=== PATIENT | male | born 1970 | race Caucasian/White ===

== ENCOUNTER 2024-01-30 11:17 | Emergency (ER) | payer MEDICARE, MEDICAID, SELFPAY ==
[2024-01-30 11:28] VITALS: BP 131/84; PULSE 85; RESP 18; TEMP 36.7; O2SAT 96
--- NOTE | 2024-01-30 11:29 | EKG_ITS ---
[facility] Test Date: 2024-01-30 Pat Name: TACHO PEARSON Department: Room: - Gender: Male Data Processing Clerk: : 1970 Requested By: Jd Thompson Order Number: [id number] Reading MD: Jd Thompson Measurements Intervals Glennie Rate: 78 P: 45 MI: 154 QRS: 10 QRSD: 109 T: 2 QT: 382 QTc: 437 Interpretive Statements SINUS RHYTHM INCOMPLETE RIGHT BUNDLE BRANCH BLOCK [90+ ms QRS DURATION, TERMINAL R IN V1/V2, 40+ ms S IN I/aVL/V4/V5/V6] Compared to ECG 03/20/2023 02:29:39 Incomplete right bundle-branch block now present Sinus tachycardia no longer present /store/S0/[id number]/ecg/[id number]
--- NOTE | 2024-01-30 11:29 | XR_ITS ---
Examination: AP chest single view TECHNIQUE: AP portable upright chest single view Exam date and time: February 09, 2024 1159 hours Comparison March 24, 2023 INDICATIONS: Chest pain today. FINDINGS: Normal heart size No pneumonia or pulmonary edema IMPRESSION: No pneumonia or pulmonary edema Moderate osteopenia
--- NOTE | 2024-01-30 11:30 | EDNOTE_ITS ---
ED General RME/HPI General Chief complaint: Chest Pain Stated complaint: CHEST PAIN Time Seen by Provider: 01/30/24 11:29 Arrival date/time: 01/30/24 11:17 CC: Chest pain HPI of substernal chest pain onset abruptly after drinking coffee this morning 7 on a 10 scale EMS reports stable vital signs around he was given Nitropaste, and 1 baby aspirin his chest pain is decreased to a 1. The patient has no prior history of similar events past medical history includes hypertension smoking and alcohol patient states he is stopped smoking and drinking years ago. Patient is awake alert and oriented not in any acute distress. Related Data Previous Rx's ?Medication ?Instructions ?Recorded phenobarbital 32.4 mg tablet 32.4 mg PO QDAY #7 tabs 03/31/23 Allergies Allergy/AdvReac Type Severity Reaction Status Date / Time No Known Allergies Allergy Verified 12/09/22 10:18 Review of Systems Review of Systems Narrative Review of Systems: GEN: No fever, no chills, no weight loss EYES: No discharge, no visual changes, no pain HEENT: No ear pain, no congestion, no sore throat PULM: No shortness of breath, no cough, no congestion CV: + chest pain, no dyspnea on exertion, no palpitations GI: No nausea, no vomiting, no diarrhea, no pain, no constipation : No frequency, no urgency, no dysuria MUSC/SKEL: No joint pain, no back pain SKIN: No rash PSYCH: No hallucinations, no depression HEME/LYMPH: No easy bleeding or bruising tendencies NEURO: No weakness, no headache Past Medical History Past Medical History NEUROLOGIC: Positive Seizures CARDIAC: Positive Cardiac Disorders, Hypercholesterolemia and Hypertension; Negative Congestive Heart Failure RESPIRATORY: Negative Chronic Obstructive Pulmonary Disease (COPD) or Asthma GENITOURINARY: Negative Renal Disease ENDOCRINE: Negative Diabetes Mellitus Type 1 or Diabetes Mellitus Type 2 HEMATOLOGIC: Negative Sickle Cell Disease Family History FAMILY HISTORY: Positive Family Cardiac Disorders Social History SMOKING STATUS: Former smoker SUBSTANCE USE: marijuana ED Exam Narrative Physical exam: [General: Not in any acute distress Head normocephalic HEENT: Within acceptable limits Neck is supple nontender Chest equal chest rise nontender to palpation Respiratory: Clear to auscultation no wheezes crackles or rubs CV: Rate rhythm is regular no murmurs rubs or clicks Abdomen is distended secondary to body habitus soft nontender no masses positive bowel sounds all 4 quadrants Back: No CVA tenderness no spinous process tenderness from cervical spine thoracic and lumbar spine Skin: Intact no petechiae rash induration ulceration or crepitus Extremities: Moving all extremity against resistance cap refill less than 2 seconds neurosensory intact. Pitting edema to both lower extremities. Neuro: Awake alert oriented x3 Glascow coma 15 no focal deficits] Course Course Course Narrative: Heart score 3 Quality Measures none Orders Category Date Time Status Change Number Operator Q4H START 00 Care 01/30/24 11:50 Active EKG (ED ONLY) *Do not use* NOW Care 01/30/24 11:29 Completed EKG (ED Only) Stat Exams 01/30/24 11:29 Draft XR chest 1V Stat Exams 01/30/24 11:29 Completed B-Type Natriuretic Peptide Stat Lab 01/30/24 12:33 Completed CBC Stat Lab 01/30/24 12:00 Completed Comprehensive Metabolic Panel Stat Lab 01/30/24 12:33 Completed Drug Screen,Urine Stat Lab 01/30/24 12:24 Completed LDH (Lactate Dehydrogenase) Stat Lab 01/30/24 12:33 Completed Magnesium Stat Lab 01/30/24 12:33 Completed Partial Thromboplastin Time Stat Lab 01/30/24 12:00 Completed Prothrombin Time with INR Stat Lab 01/30/24 12:00 Completed Troponin I Stat Lab 01/30/24 12:33 Completed Troponin I Stat Lab 01/30/24 14:44 Completed Urinalysis Stat Lab 01/30/24 12:24 Completed Vital Signs Vital signs: Vital Signs Temperature 98.1 F 01/30/24 11:28 Pulse Rate 85 01/30/24 11:28 Respiratory Rate 18 01/30/24 11:28 Blood Pressure 131/84 H 01/30/24 11:28 Pulse Oximetry (%) 96 01/30/24 11:28 Oxygen Delivery Method Room Air 01/30/24 11:28 [facility] Patient data External records reviewed:: [facility] previous records and EMS form Clinical information provided by:: patient and EMS Social determinants that could affect healthcare access:: none Patient has the following chronic illnesses:: Subdural hematoma alcohol abuse How is presenting disease/condition affected by chronic disease/condition?: u neffected by Evaluation data The following diagnostics were reviewed and interpreted by me:: lab results, radiology exam(s) and EKG tracing(s) Lab and/or radiology exams considered but not ordered:: Number EKG performed at 1153 shows a ventricular at 70 KS interval 154 QRS of 109 QTc of 415 is normal sinus rhythm. CBC shows no acute leukocytosis anemia thrombocytopenia CMP shows no acute electrolyte imbalances renal impairment transaminitis or T. bili elevation Initial and delta troponin are negative. BNP is negative Chest x-ray is negative for any acute finding requires emergent or immediate intervention. Interpretation Summary: Chest pain is probable noncardiac. Patient be discharged home for follow-up with outpatient basis. Medications Medications considered but not ordered:: None Medication administrations:: None Consultations Consultation(s) initiated? (list below): No Diagnosis Differential Diagnosis ED Complaint MDM: ACS DC pneumonia Most likely diagnosis given after review of the tests above:: Chest pain Admission Indicated Admission indicated?: not indicated Explain why admission is indicated or not indicated:: Stable for outpatient follow-up Admission Request Was there a request for admission?: No Disposition Plan Disposition Plan: Discharge Discharge Attestation Discharge Attestation: The patient and all family members were given an opportunity to ask questions and understood the discharge instructions. Discharge instructions specifically effects, indications for sooner follow up or return to the emergency department, and the expected course of current diagnosis. Patient condition: Stable Medical Decision Making Differential Diagnosis Differential Diagnosis: ACS DC pneumonia Lab Data 01/30/24 12:00 01/30/24 12:33 Labs: Lab Results 01/30/24 01/30/24 01/30/24 Range/Units 12:00 12:24 12:33 WBC 5.0 (3.8-10.6) Thou/mm3 RBC 5.00 (4.50-5.90) Miln/mm3 Hgb 13.6 (13.5-16.0) g/dL Hct 40.7 L (41.0-53.0) % MCV 81 (80-100) fL MCH 27.2 (25.0-35.0) pg MCHC 33.4 (31.0-37.0) g/dl RDW Std Deviation 40.6 (35.1-43.9) fL Plt Count 254 (140-440) Thou/mm3 Neut % (Auto) 59 (37-80) % Lymph % (Auto) 26 (10-50) % Love % (Auto) 11 (0-12) % Eos % (Auto) 2 (0-10) % Baso % (Auto) 1 (0-2.5) % Neut # (Auto) 3.0 (1.8-7.7) Thou/mm3 Lymph # (Auto) 1.3 (1.0-4.8) Thou/mm3 Love # (Auto) 0.6 (0.0-0.8) Thou/mm3 Eos # (Auto) 0.1 (0.0-0.5) Thou/mm3 Baso # (Auto) 0.0 (0.0-0.2) Thou/mm3 Immature Gran # (Auto) 0.01 H (0.00-0.00) Thou/mm3 Absolute Nucleated RBC 0.00 (0.00-0.00) Thou/mm3 Immature Gran % 0 (0-0) % Nucleated RBC % 0 (0) /100 WBC PT 10.8 (9.0-12.2) Seconds INR 1.0 (0.9-1.3) APTT 23.0 (22.0-36.0) Seconds Sodium 137 (136-145) mMol/L Potassium 3.7 (3.4-5.1) mMol/L Chloride 102 (98-107) mMol/L Carbon Dioxide 25.8 (20.0-31.0) mMol/L Anion Gap 9 (7-16) BUN 12 (9-23) mg/dL Creatinine 0.9 (0.6-1.3) mg/dL Estim Creat Clear Calc 105.4 (>60) mL/min eGFR > 60 (60 - ) See Note BUN/Creatinine Ratio 13 (12-20) Ratio Glucose 165 H (74-106) mg/dL Calculated Osmolality 277 (275-295) Calcium 8.8 (8.3-10.6) mg/dL Corrected Calcium 8.8 (8.5-10.1) mg/dL Magnesium 2.0 (1.6-2.6) mg/dL Total Bilirubin 0.4 (0.3-1.2) mg/dL AST 11 (0-34) U/L ALT 14 (10-49) U/L Alkaline Phosphatase 102 (46-116) U/L Lactate Dehydrogenase 205 (120-246) U/L Troponin I < 0.002 (0.0-0.045) ng/mL B-Natriuretic Peptide < 20 (0-100) pg/mL Total Protein 6.8 (5.7-8.2) gm/dL Albumin 4.6 (3.5-5.0) gm/dL Globulin 2.2 L (2.3-3.5) gm/dL Albumin/Globulin Ratio 2.1 (1.2-2.2) Ur Collection Type Clean Catch Urine Color Yellow (Lt Yel-Yel) Urine Clarity Clear (Clear/Hazy) Urine pH 7.5 H (5.0-7.0) Ur Specific [place] 1.020 (1.001-1.035) Urine Protein Trace (Neg - Trace) Urine Glucose (UA) Trace (Negative) Urine Ketones Negative (Negative) Urine Blood Negative (Negative) Urine Nitrite Negative (Negative) Urine Bilirubin Negative (Negative) Urine Urobilinogen (Auto) 2.0 (0.0-1.0) mg/dL Ur Leukocyte Esterase Negative (Negative) Urine RBC 1 (0-3) /hpf Urine WBC < 1 (0-5) /hpf Ur Squamous Epith Cells 0 (0-5) /hpf Urine Bacteria None (None) Urine Opiates Screen Negative (Negative) Urine Fentanyl Screen Negative (Negative) Ur Barbiturates Screen Negative (Negative) U Amphetamin/Meth Scrn Negative (Negative) U Benzodiazepines Scrn Negative (Negative) U Cocaine Metab Screen Negative (Negative) U Marijuana (THC) Screen Negative (Negative) 01/30/24 Range/Units 14:44 WBC (3.8-10.6) Thou/mm3 RBC (4.50-5.90) Miln/mm3 Hgb (13.5-16.0) g/dL Hct (41.0-53.0) % MCV (80-100) fL MCH (25.0-35.0) pg MCHC (31.0-37.0) g/dl RDW Std Deviation (35.1-43.9) fL Plt Count (140-440) Thou/mm3 Neut % (Auto) (37-80) % Lymph % (Auto) (10-50) % Love % (Auto) (0-12) % Eos % (Auto) (0-10) % Baso % (Auto) (0-2.5) % Neut # (Auto) (1.8-7.7) Thou/mm3 Lymph # (Auto) (1.0-4.8) Thou/mm3 Love # (Auto) (0.0-0.8) Thou/mm3 Eos # (Auto) (0.0-0.5) Thou/mm3 Baso # (Auto) (0.0-0.2) Thou/mm3 Immature Gran # (Auto) (0.00-0.00) Thou/mm3 Absolute Nucleated RBC (0.00-0.00) Thou/mm3 Immature Gran % (0-0) % Nucleated RBC % (0) /100 WBC PT (9.0-12.2) Seconds INR (0.9-1.3) APTT (22.0-36.0) Seconds Sodium (136-145) mMol/L Potassium (3.4-5.1) mMol/L Chloride (98-107) mMol/L Carbon Dioxide (20.0-31.0) mMol/L Anion Gap (7-16) BUN (9-23) mg/dL Creatinine (0.6-1.3) mg/dL Estim Creat Clear Calc (>60) mL/min eGFR (60 - ) See Note BUN/Creatinine Ratio (12-20) Ratio Glucose (74-106) mg/dL Calculated Osmolality (275-295) Calcium (8.3-10.6) mg/dL Corrected Calcium (8.5-10.1) mg/dL Magnesium (1.6-2.6) mg/dL Total Bilirubin (0.3-1.2) mg/dL AST (0-34) U/L ALT (10-49) U/L Alkaline Phosphatase (46-116) U/L Lactate Dehydrogenase (120-246) U/L Troponin I < 0.002 (0.0-0.045) ng/mL B-Natriuretic Peptide (0-100) pg/mL Total Protein (5.7-8.2) gm/dL Albumin (3.5-5.0) gm/dL Globulin (2.3-3.5) gm/dL Albumin/Globulin Ratio (1.2-2.2) Ur Collection Type Urine Color (Lt Yel-Yel) Urine Clarity (Clear/Hazy) Urine pH (5.0-7.0) Ur Specific [place] (1.001-1.035) Urine Protein (Neg - Trace) Urine Glucose (UA) (Negative) Urine Ketones (Negative) Urine Blood (Negative) Urine Nitrite (Negative) Urine Bilirubin (Negative) Urine Urobilinogen (Auto) (0.0-1.0) mg/dL Ur Leukocyte Esterase (Negative) Urine RBC (0-3) /hpf Urine WBC (0-5) /hpf Ur Squamous Epith Cells (0-5) /hpf Urine Bacteria (None) Urine Opiates Screen (Negative) Urine Fentanyl Screen (Negative) Ur Barbiturates Screen (Negative) U Amphetamin/Meth Scrn (Negative) U Benzodiazepines Scrn (Negative) U Cocaine Metab Screen (Negative) U Marijuana (THC) Screen (Negative) Discharge Plan Plan Patient Disposition: HOME (Self Care) Patient condition on transfer: Stable Prescriptions/Referrals Prescriptions/Med Rec: No Action phenobarbital 32.4 mg tablet 32.4 mg PO QDAY Qty: 7 0RF Rx Instructions: complete 1 week of 32.4mg bid, then take this prescription once daily for one week Referrals: Hector Ragsdale MD [Primary Care Provider] - In 1 week Problem List Clinical Impression: Chest pain Patient/Caregiver Discharge Instructions Education Materials: ED Chest Pain, Uncertain Cause Additional Instructions: Follow-up with your primary care provider if is worsening of symptoms return the emergency room medially for further evaluation. Print Language: Slovenian Stand Alone Forms: Mariam Award Info., Patient Portal Info Letter, Work/School Release PA/TEXTILE ENGINEER Supervising Physician PA/TEXTILE ENGINEER Supervising Physician: Jd Patterson ENP
[2024-01-30 11:45] VITALS: PULSE 90; RESP 18; O2SAT 99
--- NOTE | 2024-01-30 11:45 | PC.NURSE ---
Patient to er via ems with c/o upper mid chest pain after drinking coffee since 0900 this am, per ems en route they gave nitro 0.4mg sl x 1, 1inch nitropaste and asa 162mg po, per patient chest pain relieved by pain medication, denies pain, no c/o dizziness, sob, no n/v, skin warm dry and pink, chart up to be seen by er provider, call light within reach.
[2024-01-30 11:48] VITALS: BMI 25.0
[2024-01-30 11:53] VITALS: PULSE 78
[2024-01-30 12:12] LABS: Basophils % (Auto) 1 % (0-2.5); Eosinophils # (Auto) 0.1 Thou/mm3 (0.0-0.5); Eosinophils % (Auto) 2 % (0-10); Hematocrit 40.7 % (41.0-53.0); Hemoglobin 13.6 g/dL (13.5-16.0); Immature Granulocytes % (Auto) 0 % (0-0); Immature Granulocytes Auto 0.01 Thou/mm3 (0.00-0.00); Lymphocytes # (Auto) 1.3 Thou/mm3 (1.0-4.8); Lymphocytes % (Auto) 26 % (10-50); Mean Corpuscular HGB Conc 33.4 g/dl (31.0-37.0); Mean Corpuscular Hemoglobin 27.2 pg (25.0-35.0); Mean Corpuscular Volume 81 fL (80-100); Monocytes # (Auto) 0.6 Thou/mm3 (0.0-0.8); Monocytes % (Auto) 11 % (0-12); Neutrophils % (Auto) 59 % (37-80); Nucleated Red Blood Cell % 0 /100 WBC (0); Platelet Count 254 Thou/mm3 (140-440); RDW Standard Deviation 40.6 fL (35.1-43.9)
[2024-01-30 12:29] LABS: Prothrombin Time 10.8 Seconds (9.0-12.2)
[2024-01-30 12:43] LABS: Collection Type, Urine Clean Catch; Squamous Epithelial Cell,Urine 0 /hpf (0-5)
[2024-01-30 12:51] LABS: Bilirubin,Urine Negative (Negative); Blood,Urine Negative (Negative); Clarity,Urine Clear (Clear/Hazy); Color,Urine Yellow (Lt Yel-Yel); Glucose, Urine Trace (Negative); Ketones,Urine Negative (Negative); Leukocyte Esterase,Urine Negative (Negative); Nitrite,Urine Negative (Negative); PH,Urine 7.5 (5.0-7.0); Protein,Urine Trace (Neg - Trace); RBC,Urine 1 /hpf (0-3); WBC,Urine < 1 /hpf (0-5)
[2024-01-30 12:58] LABS: Amphetamine/Methamp Scrn,U Negative (Negative); Barbiturate Screen,Urine Negative (Negative); Benzodiazepines Screen,Urine Negative (Negative); Benzoylecgonine Screen, Ur Negative (Negative); Fentanyl Screen,Urine Negative (Negative); Opiate Screen,Urine Negative (Negative); THC Screen,Urine Negative (Negative)
[2024-01-30 13:53] LABS: Alanine Aminotransferase 14 U/L (10-49); Albumin, Serum 4.6 gm/dL (3.5-5.0); Albumin/Globulin Ratio 2.1 (1.2-2.2); Alkaline Phosphatase 102 U/L (46-116); Aspartate Amino Transferase 11 U/L (0-34); BUN/Creatinine Ratio 13 Ratio (12-20); Bilirubin,Total 0.4 mg/dL (0.3-1.2); Blood Urea Nitrogen 12 mg/dL (9-23); Calcium 8.8 mg/dL (8.3-10.6); Calcium (Corrected) 8.8 mg/dL (8.5-10.1); Chloride 102 mMol/L (98-107); Creatinine (Component) 0.9 mg/dL (0.6-1.3); Estimated Creatinine Clearance 105.4 mL/min (>60); Globulin 2.2 gm/dL (2.3-3.5); Glucose 165 mg/dL (74-106); LDH (Lactate Dehydrogenase) 205 U/L (120-246); Osmolality,Calculated 277 (275-295); Potassium 3.7 mMol/L (3.4-5.1); Sodium 137 mMol/L (136-145); Total Protein 6.8 gm/dL (5.7-8.2); Troponin I < 0.002 ng/mL (0.0-0.045); eGFR > 60 See Note
[2024-01-30 13:57] VITALS: BP 121/86; PULSE 76; RESP 17; TEMP 36.8; O2SAT 95
[2024-01-30 14:02] LABS: Anion Gap 9 (7-16); Carbon Dioxide 25.8 mMol/L (20.0-31.0)
[2024-01-30 14:15] LABS: B-Type Natriuretic Peptide < 20 pg/mL (0-100)
[2024-01-30 15:18] LABS: Troponin I < 0.002 ng/mL (0.0-0.045)
[2024-01-30 15:36] VITALS: BP 125/84; PULSE 79; RESP 17; TEMP 36.6; O2SAT 94
[2024-01-30 15:59] VITALS: BP 126/92; PULSE 79; RESP 17; TEMP 36.6; O2SAT 94
== END 2024-01-30 15:59 | disposition home or self-care (01) ==
PROVIDERS: Registered Nurse General Practice; Emergency Provider Emergency Medicine; PCP Internal Medicine
DX: R07.9 Chest pain, unspecified (principal); I45.10 Unspecified right bundle-branch block; E78.00 Pure hypercholesterolemia, unspecified; I10 Essential (primary) hypertension; Z87.891 Personal history of nicotine dependence
CPT/HCPCS: 36415; 71045; 80053; 80307; 81001; 83615; 83735; 83880; 84484; 85025; 85610; 85730; 93005; 99283